=== PATIENT | male | born 1975 | race Caucasian/White ===

== ENCOUNTER 2022-07-10 22:28 | Emergency (ER) | payer OTHER ==
[~2022-07-10 22:28] MED LIST: MOTRIN800 MG PO; NKHM; PREDNISONE20 MG PO; TESSALON PERLE200 MG PO; ZITHROMAX Z PA250 MG PO
[2022-07-11] MEDS ORDERED: CYCLOBENZAPRINE10 MG PO (02:23)
== END 2022-07-11 02:33 | disposition home or self-care (01) ==
LOC: ED 22:28
DX: M54.32 Sciatica, left side (principal); I10 Essential (primary) hypertension; E11.9 Type 2 diabetes mellitus without complications